=== PATIENT | female | born 1975 | race Two or more races ===

== ENCOUNTER 2023-11-26 11:02 | Emergency (ER) | payer OTHER ==
[~2023-11-26] VITALS: Ht 157.5 cm; Wt 59.0 kg
[2023-11-26] MEDS ORDERED: CLONAZEPAM0.5 MG PO (11:45)
[2023-11-26] MEDS ORDERED: ZOCOR20 MG PO (11:46)
[2023-11-26] MEDS ORDERED: METHOTREXATE2.5 MG PO (11:47)
[2023-11-26] MEDS ORDERED: PEPCID AC20 MG PO (11:48)
[2023-11-26] MEDS ORDERED: LEXAPRO5 MG PO (11:48)
[2023-11-26] MEDS ORDERED: ZYPREXA5 MG PO (11:49)
[2023-11-26] MEDS ORDERED: MELOXICAM15 MG (11:49)
[2023-11-26] MEDS ORDERED: RINGERS SOLUTION,LACTATED 1,000 ML IV STA (13:18)
[2023-11-26 13:47] LABS: HEMATOCRIT 35.8 % (36.0-45.00); HEMOGLOBIN 12.4 g/dL (12.0-15.00); MEAN CORPUSCULAR HEMOGLOBIN 31.7 pg (27.00-32.0); MEAN CORPUSCULAR HGB CONC 34.8 g/dl (32.0-36.0); PLATELET COUNT 329 K/uL (150-450); RED BLOOD COUNT 3.93 M/uL (4.00-6.00); RED CELL DISTRIBUTION WIDTH 12.8 % (11.5-14.5)
[2023-11-26 14:40] LABS: CALCIUM 9.1 mg/dL (8.5-10.1); CREATININE SERUM 0.63 mg/dL (0.55-1.02); GFR 101.29; POTASSIUM 3.7 mEq/L (3.5-5.1)
[2023-11-26 14:48] LABS: URINE APPEARANCE Clear; URINE BILIRRUBIN Negative (NEGATIVE); URINE BLOOD Large; URINE COLOR Red; URINE GLUCOSE Negative (NEGATIVE); URINE LEUKOCYTE Trace; URINE NITRATE Negative; URINE PROTEIN 30 (NEGATIVE); URINE UROBILINOGEN 0.2 E.U./dl
[2023-11-26 14:52] LABS: URINE BACTERIA 807.6 uL (0.0-1933); URINE EPITHELIAL CELLS 16.6 uL (0.0-38.8); URINE RBC 2316.9 uL (0.0-20.8); URINE WBC 21.4 uL (0.0-23.2)
== END 2023-11-26 15:10 | disposition home or self-care (01) ==
LOC: ER 11:03
PROVIDERS: General Practice
DX: N93.8 Other specified abnormal uterine and vaginal bleeding (principal); Z88.0 Allergy status to penicillin; N83.292 Other ovarian cyst, left side